=== PATIENT | female | born 1950 | race Caucasian/White ===

== ENCOUNTER 2017-07-22 18:08 | Inpatient (IN) | payer OTHER ==
[~2017-07-22] VITALS: Ht 152.4 cm; Wt 62.3 kg
--- NOTE | ~2017-07-22 | 2DMMODE ---
[facility] [address] [place] [address] 2 D/M-MODE ECHOCARDIOGRAM Name: DACIA KIM Room #: 358-P ADM IN M.R.#: [id number] Admission: 07/22/17 Attend Phys: Prince Rutherford Discharge: Date of : 46 Date of Service: 07/23/17 1008 Report #: [id number] THIS REPORT FOR: //name// APPROVED REPORT Study performed: 07/23/2017 10:30:20 EXAM: Comprehensive 2D, Doppler, and color-flow Echocardiogram Patient Location: Echo lab Room #: [facility] Status: routine BSA: 1.59 HR: 63 bpm BP: 143/66 mmHg Rhythm: NSR Other Information Study Quality: Good Indications TIA Echo Enhancing Agent Indication: Rule out Shunt Agent(s) / Amount(s) Used: Agitated Saline 6 cc 2D Dimensions RVDd: 29.84 mm LVEF(%): 67.52 (>50%) IVSd: 9.64 (7-11mm) LVOT Diam: 18.63 (18-24mm) LVDd: 40.40 mm PWd: 9.03 (7-11mm) Ascending Ao: 28.89 (22-36mm) LVDs: 25.43 (25-40mm) Aortic Root: 29.90 mm Mejia's LVEF: 67.52 % Volumes Left Atrial Volume (Systole) Single Plane 4CH: 52.96 mL Single Plane 2CH: 53.80 mL LA ESV Index: 36.00 mL/m2 Aortic Valve AoV Peak Lg.: 1.20 m/s AO Peak Gr.: 5.80 mmHg LVOT Max P.14 mmHg LVOT Max V: 1.13 m/s MIGUEL Vmax: 2.56 cm2 [facility] [place] [address] 2 D/M-MODE ECHOCARDIOGRAM Name: JULIODACIA Room #: 358-[facility] IN ..#: [id number] Admission: 07/22/17 Attend Phys: Prince Rutherford Discharge: Date of : 46 Date of Service: 07/23/17 1008 Report #: [id number] Mitral Valve E/A Ratio: 3.8 MV Decel. Time: 156.22 ms MV E Max Lg.: 1.07 m/s MV A Lg.: 0.28 m/s MV PHT: 45.30 ms IVRT: 62.28 ms Pulmonary Valve PV Peak Lg.: 0.77 m/s PV Peak Gr.: 2.36 mmHg Pulmonary Vein P Vein S: 0.27 m/s P Vein A: 0.23 m/s P Vein D: 0.83 m/s P Vein A Dur.: 120.0 msec P Vein S/D Ratio: 0.33 Tricuspid Valve TR Peak Lg.: 2.81 m/s RAP Estimate: 5.00 mmHg TR Peak Gr.: 31.58 mmHg PA Pressure: 37.00 mmHg Left Ventricle The left ventricle is normal size. There is normal LV segmental wall motion. There is normal left ventricular wall thickness. Left ventricular systolic function is normal. LVEF is 60-65%. Left atrial pressure is elevated. Right Ventricle The right ventricle is normal size. The right ventricular systolic function is normal. Atria Left atrium is dilated. Injection of bubbles documented no interatrial shunt. The right atrium size is normal. Aortic Valve Aortic valve leaflets are mildly thickened. Trace aortic regurgitation. There is no aortic valvular stenosis. Mitral Valve Mitral valve leaflets are mildly thickened. Mild mitral annular calcification. Moderate mitral regurgitation. Tricuspid Valve The tricuspid valve is normal in structure. Moderate tricuspid [address] [address] 2 D/M-MODE ECHOCARDIOGRAM Name: DACIA KIM Room #: 358-P [facility] IN .R.#: [id number] Admission: 07/22/17 Attend Phys: Prince Rutherford Discharge: Date of : 46 Date of Service: 07/23/17 1008 Report #: [id number] regurgitation. Estimated PAP is 35-40mmHg. Pulmonic Valve The pulmonary valve is normal in structure. Trace pulmonic regurgitation. Great Vessels The aortic root is normal in size. The ascending aorta is normal in size. IVC is normal in size and collapses >50% with inspiration. Pericardium There is no pericardial effusion. <Conclusion> The left ventricle is normal size. LVEF is 60-65%. Left atrium is dilated. Aortic valve leaflets are mildly thickened. Trace aortic regurgitation. There is no aortic valvular stenosis. Mitral valve leaflets are mildly thickened. Mild mitral annular calcification. Moderate mitral regurgitation. The tricuspid valve is normal in structure. Moderate tricuspid regurgitation. Estimated PAP is 35-40mmHg. There is no pericardial effusion. Injection of bubbles documented no interatrial shunt. <ELECTRONICALLY SIGNED> By: Keo Mosquera MD 07/23/17 1008 1008 100 Keo Mosquera MD /INF
--- NOTE | ~2017-07-22 | EEG ---
[facility] [address] [place] [address] ELECTROENCEPHALOGRAM Name: DACIA KMI Room #: 358-[facility] IN M.R.#: [id number] Admission: 07/22/17 Attend Phys: Pricne Wu Discharge: 07/23/17 Date of : 46 Report #: [id number] THIS REPORT FOR: //name// CC: RADHA physician/PCP Prince Ogden This patient was admitted with episode of syncope. EEG was done to evaluate that further. Background activity in this patient's EEG was about 11 Hz and 40 microvolt. It is a well formed background activity. This patient goes to sleep that is associated with bilaterally symmetrical sleep spindle and vertex sharp waves. Photic stimulation was unremarkable. Throughout the record, no active epileptiform activity was noticed. IMPRESSION: This patient's EEG is unremarkable. I had talked to the patient and her rest of the workup was also unremarkable. I had given her the options of doing a CT angiogram of the head and neck to further confirm the finding on rest of the testing. She had decided that she does not want the CT angio of the head and neck and had gone home yesterday. Thank you very much for this referral and if she ever wants to do the CT angio of the head and neck to further confirm the carotid Doppler and MRA finding then she can come back to our office as an outpatient and will be happy to arrange that. Thank you very much for this referral. <ELECTRONICALLY SIGNED> By: Khoi Ahn MD 07/25/17 0734 [phone] Khoi Ahn MD /nt
--- NOTE | ~2017-07-22 | EKG ---
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
--- NOTE | ~2017-07-22 | HC ---
[facility] [place] [address] CONSULTATION Name: DACIA KIM Room #: 358-[facility] IN M.R.#: [id number] Admission: 07/22/17 Attend Phys: Prince Ogden Discharge: 07/23/17 Date of : 46 Report #: [id number] THIS REPORT FOR: //name// CC: RADHA physician/PCP Prince Ogden DATE OF SERVICE: 07/23/2017 HISTORY OF PRESENT ILLNESS: This is a 67-year-old female patient who was evaluated by me for one episode of speech difficulty. She was on the telephone. She remembered the event very well. She was able to comprehend other people without any difficulty. It lasted about 5 minutes and then resolved by itself. She did have a small facial droop during this episode. She had another episode like this in March, but that time she was also dazed. REVIEW OF SYSTEMS: Indicates that she is not known hypertensive. Her blood pressure here is running in fairly unremarkable range. She has not had any blood workup done for sometime. She is not complaining of any new eye, ENT, cardiac, respiratory, GI, , musculoskeletal, constitutional, dermatological, hematological, psychiatric, and throat symptoms associated with present symptomatology. PAST MEDICAL HISTORY: Positive for an episode like this before. FAMILY HISTORY: Negative for early age stroke. SOCIAL HISTORY: She drinks about8 1 alcoholic drink every other day and she does not smoke. She is pretty active. PHYSICAL EXAMINATION: Indicates she is alert. She is responsive. She is able to follow simple and complex commands. Her speech, concentration, fund of knowledge and memory is at her baseline. Cranial nerve examination 2-12 is unremarkable. I could not have a very good look at the patient's fundus. She has symmetrical strength, sensation, reflexes and tone in all 4 extremities. No cerebellar sign. She says she is able to walk without any difficulty. She is reasonably well-developed individual who does not have any dysmorphic features of eyes, ears and face. Her pulses are palpable. She has no edema, cyanosis or jaundice. Her hearing and vision looks adequate. Cardiac examination shows no atrial fibrillations or murmur. Respiratory examination is unremarkable. There is no rhonchi on either side. Her heart sounds are unremarkable. Her blood pressure indicates a blood pressure of 143/66, respiration 14, pulse is 60, temperature is 98.7. LABORATORY DATA: Indicates a normal white count at 7.6, BUN was trace high at 24, but she has LDL of 143. Her HDL is also 80, but that should be protective. [address] [address] CONSULTATION Name: DACIA KIM Room #: 358-P [facility] IN M.R.#: [id number] Admission: 07/22/17 Attend Phys: Prince Ogden Discharge: 07/23/17 Date of : 46 Report #: [id number] IMPRESSION: The symptom this patient had was suggestive of transient ischemic attack, this is the second episode she had. She does drink some alcohol, but does not look like she drinks enough alcohol to cause her seizures, but there is another possibility that it can be focal seizure but very unlikely. It can be vasospasms, but she really does not have any predisposition for vasospasms. RECOMMENDATIONS: 1. Since this episode occurred when she was taking aspirin for several years, I will suggest switching to Plavix. 2. She is already on statin and her HDL is pretty good. 3. I will suggest doing some other workup. 4. I will go ahead and do an EEG in this patient because this is her second episode. 5. I discussed all these options with her and I will go back and discuss to see if we should do a CT angio to complete the workup and depending upon what she would like to do, we will proceed accordingly. Thank you very much for this referral. By: 1306 0116 Khoi Ahn MD /nt
[2017-07-22 18:10] VITALS: BP 133/75
[2017-07-22] MEDS ORDERED: ASPIR 8181 MG PO (18:18)
[2017-07-22] MEDS ORDERED: GREEN TEA CAPL1 EACH PO (18:19)
[2017-07-22] MEDS ORDERED: CITRACAL + BON1 EACH PO (18:19)
[2017-07-22] MEDS ORDERED: ALEVE220 MG PO (18:19)
[2017-07-22] MEDS ORDERED: PROBIOTIC1 EAC1 PO (18:20)
[2017-07-22 18:32] LABS: HEMATOCRIT 36.8 % (37.0-47.0); HEMOGLOBIN 12.3 gm/dL (12.0-15.0); MCH 30.2 pg (26.0-34.0); MCHC 33.6 g/dL (28.0-37.0); MCV 89.9 fL (80.0-100.0); RBC 4.09 mil/uL (4.20-5.00); RDW 13.4 % (10.5-14.5); WBC 7.6 thou/uL (4.0-11.0)
[2017-07-22 18:41] LABS: ANION GAP 7 mmol/L (7-16); BUN 24 mg/dL (7-18); CALCIUM 9.2 mg/dL (8.5-10.1); CHLORIDE 106 mmol/L (98-107); CO2 26 mmol/L (21-32); CREATININE 0.9 mg/dL (0.6-1.0); GLUCOSE 90 mg/dL (74-106); SODIUM 139 mmol/L (136-145)
[2017-07-22 18:50] LABS: TROPONIN-I < 0.04 ng/mL (<0.06)
[2017-07-22 20:04] VITALS: BP 143/71
[2017-07-22 20:33] VITALS: BP 138/62
[2017-07-22 20:40] VITALS: BP 146/82
[2017-07-22 22:39] LABS: CHOLESTEROL 247 mg/dL (<200); HDL CHOLESTEROL 80 mg/dL (>40); LDL CHOLESTEROL 143 mg/dL (<100); TC:HDL 3.1 Ratio (Not establshd); TRIGLYCERIDE 120 mg/dL (<150); VLDL 24 mg/dL (<40)
[2017-07-22 22:46] LABS: SERUM ASSESSMENT Clear
[2017-07-22 23:21] LABS: URINE BILIRUBIN NEGATIVE (Negative); URINE BLOOD NEGATIVE (Negative); URINE COLOR YELLOW; URINE GLUCOSE-RANDOM* NEGATIVE (Negative); URINE KETONES TRACE (Negative); URINE PROTEIN (DIPSTICK) NEGATIVE (Negative); URINE SPECIFIC GRAVITY 1.025 (1.003-1.035); URINE UROBILINOGEN 0.2 E.U./dl (0.2-1.0)
[2017-07-22 23:54] LABS: URINE LEUKOCYTES-REFLEX TRACE (Negative)
[2017-07-23 00:05] VITALS: BP 132/67
[2017-07-23 03:39] VITALS: BP 118/66
[2017-07-23 08:55] VITALS: BP 143/66
[2017-07-23 09:08] LABS: GLYCOHEMOGLOBIN (HGB A1C) 5.4 % (4.8-5.6)
[2017-07-23 11:19] LABS: ALBUMIN 3.5 g/dL (3.4-5.0); ALKALINE PHOSPHATASE 47 U/L (46-116); DIRECT BILIRUBIN < 0.1 mg/dL (<0.1-0.3); SGOT 17 U/L (15-37); SGPT 19 U/L (30-65); TOTAL BILIRUBIN 0.3 mg/dL (<0.1-1.0); TOTAL PROTEIN 6.7 g/dL (6.4-8.2)
[2017-07-23 12:45] VITALS: BP 128/74
[2017-07-23 13:21] LABS: CALCIUM 9.1 mg/dL (8.5-10.1); CREATININE 0.9 mg/dL (0.6-1.0); POTASSIUM 3.8 mmol/L (3.5-5.1)
[2017-07-23] MEDS ORDERED: LIPITOR 20 MG T20 M1 PO (13:40)
[2017-07-23] MEDS ORDERED: PLAVIX 75 MG TA75 M1 PO (13:40)
[2017-07-23 17:09] VITALS: BP 128/74
== END 2017-07-23 18:27 | disposition home or self-care (01) | DRG 69 ==
LOC: ER 18:08 → EROBS 20:06 → 3W 20:06 → ENTRNSPT 07-23 18:20 → 3W 07-23 18:27
PROVIDERS: Emergency Medicine; Hospitalist; Nurse Practitioner Acute Care; Psychiatry & Neurology Neuromuscular Medicine
DX: G45.9 Transient cerebral ischemic attack, unspecified (principal); E78.5 Hyperlipidemia, unspecified; I34.0 Nonrheumatic mitral (valve) insufficiency; Z79.82 Long term (current) use of aspirin; Z79.899 Other long term (current) drug therapy
CPT/HCPCS: 10779

== ENCOUNTER → 2019-04-06 | Outpatient (CLI) | payer OTHER ==
[~2019-04-06] MED LIST: ALEVE220 MG PO; ASPIR 8181 MG PO; CITRACAL + BON1 EACH PO; GREEN TEA CAPL1 EACH PO; LIPITOR 20 MG T20 M1 PO; PLAVIX 75 MG TA75 M1 PO; PROBIOTIC1 EAC1 PO
--- NOTE | 2019-04-06 14:59 | 2DMMODE ---
[facility] [place] [address] 2 D/M-MODE ECHOCARDIOGRAM Name: DACIA KIM Room #: REG [facility]#: [id number] Admission: 04/06/19 Attend Phys: Edmundo Diaz Discharge: Date of : 46 Date of Service: 04/06/19 1458 Report #: [id number] THIS REPORT FOR: //name// APPROVED REPORT Study performed: 04/06/2019 14:05:56 EXAM: Comprehensive 2D, Doppler, and color-flow Echocardiogram Patient Location: Out-Patient Status: routine BSA: 1.62 HR: 62 bpm BP: 143/66 mmHg Rhythm: NSR Other Information Study Quality: Good Indications Atrial Fibrillation Hx: TIA 2D Dimensions RVDd: 32.61 mm IVSd: 12.87 (7-11mm) LVOT Diam: 18.89 (18-24mm) LVDd: 36.81 mm PWd: 9.75 (7-11mm) Ascending Ao: 29.58 (22-36mm) LVDs: 25.55 (25-40mm) Aortic Root: 31.34 mm Volumes Left Atrial Volume (Systole) Single Plane 4CH: 63.09 mL Single Plane 2CH: 68.17 mL LA ESV Index: 44.00 mL/m2 Aortic Valve AoV Peak Lg.: 1.25 m/s AO Peak Gr.: 6.25 mmHg LVOT Max P.07 mmHg LVOT Max V: 1.13 m/s MIGUEL Vmax: 2.52 cm2 Mitral Valve E/A Ratio: 3.0 MV Decel. Time: 214.09 ms [facility] [address] [place] [address] 2 D/M-MODE ECHOCARDIOGRAM Name: DACIA KIM Room #: REG Florencio#: [id number] Admission: 04/06/19 Attend Phys: Edmundo Diaz Discharge: Date of : 46 Date of Service: 04/06/19 1458 Report #: [id number] MV E Max Lg.: 1.03 m/s MV A Lg.: 0.34 m/s MV PHT: 62.09 ms IVRT: 64.59 ms Pulmonary Valve PV Peak Lg.: 0.73 m/s PV Peak Gr.: 2.13 mmHg Tricuspid Valve TR Peak Lg.: 2.51 m/s RAP Estimate: 5.00 mmHg TR Peak Gr.: 25.23 mmHg PA Pressure: 30.00 mmHg Left Ventricle The left ventricle is normal size. There is normal LV segmental wall motion. Mild basal septal hypertrophy is present. Left ventricular systolic function is normal. LVEF is 65%. Right Ventricle The right ventricle is normal size. The right ventricular systolic function is normal. Atria Left atrium is moderately dilated. The right atrium size is normal. Aortic Valve Aortic valve is trileaflet; mildly thickened. No aortic regurgitation is present. There is no aortic valvular stenosis. Mitral Valve The mitral valve is normal in structure. Mild mitral annular calcification. Mild mitral regurgitation. Tricuspid Valve The tricuspid valve is normal in structure. Mild tricuspid regurgitation. Estimated PAP is 30mmHg. Pulmonic Valve The pulmonary valve is normal in structure. Trace pulmonic regurgitation. Great Vessels The aortic root is normal in size. The ascending aorta is normal in size. IVC is normal in size and collapses >50% with inspiration. [facility] [place] [address] 2 D/M-MODE ECHOCARDIOGRAM Name: DACIA KIM [id number] Admission: 04/06/19 Attend Phys: Edmundo Diaz Discharge: Date of : 46 Date of Service: 04/06/19 1458 Report #: [id number] Pericardium There is no pericardial effusion. <Conclusion> The left ventricle is normal size. LVEF is 65%. Left atrium is moderately dilated. Aortic valve is trileaflet; mildly thickened. The mitral valve is normal in structure. Mild mitral annular calcification. Mild mitral regurgitation. The tricuspid valve is normal in structure. Mild tricuspid regurgitation. Estimated PAP is 30mmHg. The pulmonary valve is normal in structure. Trace pulmonic regurgitation. There is no pericardial effusion. <ELECTRONICALLY SIGNED> By: Keo Mosquera MD 04/06/19 1458 1458 1458 Keo Mosquera MD /INF
== END ==
LOC: CV 12:46
DX: I08.1 Rheumatic disorders of both mitral and tricuspid valves (principal); I48.91 Unspecified atrial fibrillation; Z86.73 Personal history of transient ischemic attack (TIA), and cerebral infarction without residual deficits

== ENCOUNTER → 2019-05-04 | Outpatient (CLI) | payer OTHER | LOC: NUC 11:56 | DX: I48.91 Unspecified atrial fibrillation (principal); E78.5 Hyperlipidemia, unspecified; Z87.891 Personal history of nicotine dependence; Z79.899 Other long term (current) drug therapy; Z88.8 Allergy status to other drugs, medicaments and biological substances; Z82.49 Family history of ischemic heart disease and other diseases of the circulatory system ==

== ENCOUNTER → 2019-05-11 | Outpatient (CLI) | payer OTHER ==
[2019-05-11 11:25] VITALS: BP 144/70
--- NOTE | 2019-05-12 08:23 | P ---
[facility] [place] [address] PROCEDURE REPORT Name: DACIA KIM Room #: REG Farhad Jacobson.#: [id number] Admission: 05/11/19 ������������������ Attend Phys: Edmundo Diaz MD Discharge: ������������������ Date of : 46 Report #: [id number] THIS REPORT FOR: //name// CC: [facility] physician/PCP Edmundo Diaz Implantable loop recorder insertion. PREOPERATIVE DIAGNOSES: 1. Atrial fibrillation. 2. Palpitations. DESCRIPTION OF PROCEDURE: The patient underwent informed consent. She was prepped in a sterile fashion. I injected lidocaine at the incision site. Incision was made. The device was injected under the skin. A single layer of suture was performed and surgical glue was placed at the outer skin layer. There were no procedure-related complications. The implanted device was a [employer] Confirm, model #3500, serial #[id number] with R waves of 1 millivolt. CONCLUSIONS: Successful implantation of an implantable loop recorder. ��������������������������������������������� <ELECTRONICALLY SIGNED> ���������������������������������������� By: Edmundo Diaz MD ��������������������������������������������� 05/12/19 0823 1305 2303 Edmundo Diaz MD /nt
== END | disposition home or self-care (01) ==
LOC: CATH 11:04
DX: I48.91 Unspecified atrial fibrillation (principal); R00.2 Palpitations; Z86.73 Personal history of transient ischemic attack (TIA), and cerebral infarction without residual deficits; Z79.899 Other long term (current) drug therapy; Z79.01 Long term (current) use of anticoagulants; Z98.890 Other specified postprocedural states

== ENCOUNTER → 2019-05-26 | Outpatient (CLI) | payer OTHER ==
[~2019-05-26] MED LIST changes: +ALEVE220 M1 PO; +CRESTOR20 MG PO; +TOPROL XL25 MG PO; +XARELTO20 MG PO
[2019-05-26 09:30] LABS: HEMATOCRIT 39.2 % (37.0-47.0); HEMOGLOBIN 12.8 gm/dL (12.0-15.0); MCHC 32.7 g/dL (28.0-37.0); MCV 91.9 fL (80.0-100.0); RBC 4.27 mil/uL (4.20-5.00); RDW 13.2 % (10.5-14.5); WBC 6.8 thou/uL (4.0-11.0)
[2019-05-26 09:38] LABS: ALBUMIN 3.7 g/dL (3.4-5.0); CREATININE 0.9 mg/dL (0.6-1.0); POTASSIUM 4.1 mmol/L (3.5-5.1); TOTAL BILIRUBIN 0.3 mg/dL (<0.1-1.0); TOTAL PROTEIN 6.8 g/dL (6.4-8.2)
== END ==
LOC: LABMALL 08:48
PROVIDERS: Internal Medicine Cardiovascular Disease
DX: I48.91 Unspecified atrial fibrillation (principal); M47.814 Spondylosis without myelopathy or radiculopathy, thoracic region

== ENCOUNTER → 2019-06-03 | Outpatient (CLI) | payer OTHER ==
[~2019-06-03] VITALS: Ht 154.9 cm; Wt 61.2 kg
[2019-06-03 07:12] VITALS: BP 153/68
--- NOTE | 2019-06-03 09:14 | TEE ---
[facility] [address] [address] TRANSESOPHAGEAL ECHOCARDIOGRAM Name: DACIA KIM Room #: REG Florencio#: [id number] Admission: 06/03/19 Attend Phys: Rahul Terrazas, Discharge: Date of : 46 Report #: [id number] THIS REPORT FOR: //name// APPROVED REPORT Study performed: 06/03/2019 08:02:54 EXAM: Comprehensive 2D, Doppler, and color-flow Echocardiogram Patient Location: Out-Patient Room #: 11 Status: routine BSA: 1.60 HR: 49 bpm BP: 129/62 mmHg Rhythm: Atrial Fibrillation Other Information Study Quality: Excellent Indications Atrial Fibrillation Echo Enhancing Agent Indication: Rule out Shunt Agent(s) / Amount(s) Used: Agitated Saline 7 cc Procedure After obtaining informed consent, patient underwent transesophageal echo in the [employer]. Type of Sedation : Conscious Sedation Sedation was administered by Nurse. Sedation was achieved intravenously with: Versed (2 mg) Fentanyl (50 mcg) Transesophageal probe was inserted and advanced into esophagus without difficulty by Rahul Terrazas MD. Echo enhancement indication: R/O Septal defect. Echo enhancement agent administered: Agitated Saline The MEKA was performed without complications. Throughout the procedure, the blood pressure, pulse oximetry, cardiac rhythm, and rate were monitored. The patient tolerated the procedure without adverse effects. Recovery from conscious sedation was uneventful and vital signs were stable. [facility] [address] [place] [address] TRANSESOPHAGEAL ECHOCARDIOGRAM Name: DACIA KIM Room #: REG [facility].#: [id number] Admission: 06/03/19 Attend Phys: Rahul Terrazas, Discharge: Date of : 46 Report #: [id number] Left Ventricle The left ventricle is normal size. There is normal LV segmental wall motion. There is normal left ventricular wall thickness. Left ventricular systolic function is normal. The left ventricular ejection fraction is within the normal range. LVEF is 55-60%. Right Ventricle The right ventricle is normal size. The right ventricular systolic function is normal. Atria Left atrium is at the upper limits of normal. No thrombus is visualized in the left atrium or appendage. Interatrial septum is intact without evidence of ASD or PFO. Right atrium is at the upper limits of normal. Aortic Valve The aortic valve is normal in structure. No aortic regurgitation is present. There is no aortic valvular stenosis. Mitral Valve The mitral valve is normal in structure. Mild mitral regurgitation. No evidence of mitral valve stenosis. Tricuspid Valve The tricuspid valve is normal in structure. Mild tricuspid regurgitation. Pulmonic Valve The pulmonary valve is normal in structure. There is no pulmonic valvular regurgitation. Great Vessels The aortic root is normal in size. Mild atherosclerosis. No aneurysm. IVC is normal in size and collapses >50% with inspiration. Pericardium There is no pericardial effusion. <Conclusion> Left ventricular systolic function is normal. There is normal LV segmental wall motion. LVEF is 55-60%. Both atria at the upper limits of normal. No shunting by contrast bubble injection [facility] [address] [place] [address] TRANSESOPHAGEAL ECHOCARDIOGRAM Name: DACIA KIM Room #: REG Florencio#: [id number] Admission: 06/03/19 Attend Phys: Rahul Terrazas, Discharge: Date of : 46 Report #: [id number] No thrombus is visualized in the left atrium or appendage. The aortic valve is normal in structure. No aortic regurgitation or stenosis. The mitral valve is normal in structure. Mild mitral regurgitation. Mild aortic atherosclerosis. No aneurysm. There is no pericardial effusion. <ELECTRONICALLY SIGNED> By: Rahul Terrazas MD, FACC 06/03/19913 3 3 Rahul Terrazas MD, FACC /INF
== END | disposition home or self-care (01) ==
LOC: CATH 06:12
DX: I48.91 Unspecified atrial fibrillation (principal); I08.1 Rheumatic disorders of both mitral and tricuspid valves; I70.0 Atherosclerosis of aorta; E78.5 Hyperlipidemia, unspecified; Z79.01 Long term (current) use of anticoagulants; Z86.73 Personal history of transient ischemic attack (TIA), and cerebral infarction without residual deficits; Z82.49 Family history of ischemic heart disease and other diseases of the circulatory system; Z98.890 Other specified postprocedural states; Z79.899 Other long term (current) drug therapy

== ENCOUNTER 2019-06-09 06:28 | Observation (INO) | payer OTHER ==
[~2019-06-09] VITALS: Ht 157.5 cm; Wt 60.3 kg
[2019-06-09] VITALS (11 sets, daily range): BP systolic 108–144; BP diastolic 61–80
[2019-06-09 07:33] LABS: ABSOLUTE NEUTROPHILS 2.8 thou/uL (1.4-8.2); BASOPHILS 0.8 % (0.0-2.0); HEMATOCRIT 36.8 % (37.0-47.0); HEMOGLOBIN 12.1 gm/dL (12.0-15.0); LYMPHOCYTES 30.1 % (24.0-44.0); MCV 90.9 fL (80.0-100.0); MONOCYTES 7.6 % (1.0-8.0); PLATELET COUNT 152 thou/uL (150-400); POLYS 57.5 % (36.0-66.0); RBC 4.04 mil/uL (4.20-5.00); RDW 13.5 % (10.5-14.5); WBC 4.9 thou/uL (4.0-11.0)
[2019-06-09 07:42] LABS: CALCIUM 8.8 mg/dL (8.5-10.1); CREATININE 0.9 mg/dL (0.6-1.0); POTASSIUM 3.8 mmol/L (3.5-5.1)
[2019-06-09 07:48] LABS: ALBUMIN 3.5 g/dL (3.4-5.0); TOTAL BILIRUBIN 0.3 mg/dL (<0.1-1.0)
[2019-06-09 08:07] LABS: APTT 33.1 Seconds (24.5-32.8); INR 1.1; PROTIME 11.7 Seconds (9.3-11.4)
--- NOTE | 2019-06-09 08:32 | EKG ---
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
[2019-06-10 07:34] VITALS: BP 118/73
[2019-06-10 09:13] VITALS: BP 118/73
--- NOTE | 2019-06-10 11:40 | P ---
[facility] [place] [address] PROCEDURE REPORT Name: DACIA KIM Room #: 218-P [facility] Julián Matias#: [id number] Admission: 06/09/19 Attend Phys: Edmundo Diaz MD Discharge: 06/10/19 Date of : 46 Report #: [id number] THIS REPORT FOR: //name// CC: [facility] physician/PCP Edmundo Diaz PREOPERATIVE DIAGNOSIS: Atrial fibrillation. POSTOPERATIVE DIAGNOSIS: Atrial fibrillation. PROCEDURES PERFORMED: 1. Atrial fibrillation ablation, CPT code 61106. 2. 3D mapping, CPT code 88678. 3. Intracardiac echo, CPT code 70258. HISTORY: The patient is a 69-year-old female with history of paroxysmal atrial fibrillation who is intolerant of flecainide therapy. She is here for AFib ablation. ANESTHESIA: The patient underwent general anesthesia with no anesthesia related complications. DESCRIPTION OF PROCEDURE: The patient underwent informed consent. We discussed the details of the procedure including the risks, which include but not limited to bleeding, vascular damage, cardiac perforation as well as stroke or GA. She understood these risks and is willing to proceed. The patient was brought to the EP laboratory in a fasting and sedated state, prepped and draped in sterile fashion. I obtained access to the right femoral vein x 3, placing an 8, 9 and 7-Salvadorean short sheath using the modified Seldinger technique and under fluoroscopy, a decapolar catheter was placed into the coronary sinus and an ice catheter was placed into the right atrium. Of note, she did have a slightly rotated heart, which made positioning of the ice catheter somewhat challenging. Eventually, I was able to find some nice images, which showed that the patient appears to have a left common ostium, right superior and right inferior pulmonary vein. She had a nice thin interatrial septum. The patient was systemically heparinized and a transseptal was performed using an SL1 sheath and [place] needle. This was straightforward and I was able to exchange the SL1 sheath for the cryo sheath into the left atrium without any issues. Next, we started by isolating the left-sided veins. Of note, at baseline, this patient was in sinus rhythm with a sinus cycle length of 1025 milliseconds, VT interval 163 milliseconds, QRS duration 65 milliseconds, QT interval 450 milliseconds. The patient did go into atrial fibrillation while I was placing catheters in the heart initially. As such, I started by isolating the left superior branch and I performed three 4-minute freezes and this appeared to isolate this upper branch. I then turned my attention to the left inferior branch, which also segmented into a superior and an inferior branch. I [address] [address] PROCEDURE REPORT Name: JULIODACIA KVNG Room #: 218-P [facility] Matias#: [id number] Admission: 06/09/19 Attend Phys: Edmundo Diaz MD Discharge: 06/10/19 Date of : 46 Report #: [id number] performed three 4-minute freezes in the superior branch and the vein isolated within 45 seconds and I performed an additional freeze in this lower branch of 4 minutes' duration. The patient was still in AFib at this point, it appeared that the vein was isolated, but was kind of hard to determine at this point. I turned my attention to the right-sided veins, I performed a 135 second freeze followed by a 140 second freeze as the attempts were close to -55 degrees. I therefore came off early. The vein did isolate during the first freeze within 45 seconds. I then turned my attention to the right inferior pulmonary vein and this vein had really no significant activity noted at this time. Of note, as when I did isolate the right superior pulmonary vein, the atrial fibrillation did terminate. Although there was a lack of activity in the right inferior pulmonary vein, I decided to go ahead and isolate this and I performed a 4-minute freeze followed by 2-minute freeze. At this point, the patient was in sinus rhythm and I removed the cryoballoon and placed the Lasso catheter into the left atrium and it was clear that the left common ostium was isolated and the individual branches also demonstrated isolation. There was also evidence of isolation of both right-sided veins and based on voltage map and 3D activation, everything was clearly isolated with wide circumferential ablation of the veins. As such, the procedure was concluded. There were no other arrhythmias and using intracardiac ultrasound, I verified there was no pericardial effusion. The patient received systemic protamine and once ACT was within acceptable range, catheters and sheaths were pulled and hemostasis was obtained from. A [id number] suture was performed at the right groin lesion for hemostasis. CONCLUSIONS: 1. Successful isolation of the left common ostium and the right-sided veins. 2. Termination of atrial fibrillation with isolation of the right superior pulmonary veins. 3. No other inducible arrhythmias. <ELECTRONICALLY SIGNED> By: Edmundo Diaz MD 06/10/19 1140 [id number] Edmundo Diaz MD /nt
== END 2019-06-10 09:55 | disposition home or self-care (01) ==
LOC: CATH 06:28 → 2N 13:14 → ENTRNSPT 06-10 09:39 → EDTRNSPTSTS 06-10 09:42 → 2N 06-10 09:55
PROVIDERS: ADMIT Internal Medicine Cardiovascular Disease
DX: I48.0 Paroxysmal atrial fibrillation (principal); E78.5 Hyperlipidemia, unspecified; G73.3 Myasthenic syndromes in other diseases classified elsewhere; Z86.73 Personal history of transient ischemic attack (TIA), and cerebral infarction without residual deficits; Z79.899 Other long term (current) drug therapy
CPT/HCPCS: 62110; 62900; 65040; 70005

== ENCOUNTER → 2020-04-11 | Outpatient (CLI) | payer OTHER | LOC: SJCVC 09:25 | PROVIDERS: ATTEND Internal Medicine Cardiovascular Disease | DX: Z45.09 Encounter for adjustment and management of other cardiac device (principal); I48.0 Paroxysmal atrial fibrillation; Z95.818 Presence of other cardiac implants and grafts; Z79.899 Other long term (current) drug therapy ==

== ENCOUNTER → 2021-04-10 | Outpatient (CLI) | payer OTHER | LOC: SJCVCIMAG 07:54 | PROVIDERS: ATTEND Internal Medicine Cardiovascular Disease | DX: I08.2 Rheumatic disorders of both aortic and tricuspid valves (principal); I48.0 Paroxysmal atrial fibrillation; G45.9 Transient cerebral ischemic attack, unspecified; E78.2 Mixed hyperlipidemia; E78.5 Hyperlipidemia, unspecified; Z86.73 Personal history of transient ischemic attack (TIA), and cerebral infarction without residual deficits; Z88.5 Allergy status to narcotic agent; Z79.899 Other long term (current) drug therapy; Z72.89 Other problems related to lifestyle ==